=== PATIENT | male | born 1935 | race Caucasian/White ===

== ENCOUNTER 2016-06-01 12:29 | Inpatient (IN) | payer MEDICARE ==
[2016-06-01] VITALS (21 sets, daily range): BP systolic 126–199; BP diastolic 57–87; PULSE 53–83; RESP 16–23; TEMP 99.2–99.5; O2SAT 91–99
[~2016-06-01] VITALS: Ht 177.8 cm; Wt 81.2 kg
[2016-06-01 12:53] LABS: I-STAT POTASSIUM 4.4 MMOL/L (3.5-4.9); I-STAT SODIUM 141 MMOL/L (138-146)
[2016-06-01 12:55] LABS: AUTOMATED NEUTROPHIL # 4.9 TH/MM3 (1.8-7.7); BASOPHIL % 0.4 % (0.0-2.0); EOSINOPHIL # 0.1 TH/MM3 (0-0.4); HEMATOCRIT 41.3 % (39.0-51.0); HEMO FLAGS DIFF FINAL; LYMPH % 16.4 % (9.0-44.0); LYMPHOCYTE # 1.1 TH/MM3 (1.0-4.8); MEAN CELL VOLUME 93.6 FL (80.0-100.0); MEAN CORPUSCULAR HEMOGLOBIN 31.5 PG (27.0-34.0); MEAN CORPUSCULAR HGB CONC 33.7 % (32.0-36.0); MONO % 5.8 % (0.0-8.0); NEUT % 75.4 % (16.0-70.0); PLATELET COUNT 151 TH/MM3 (150-450); RED BLOOD COUNT 4.41 MIL/MM3 (4.50-5.90); RED CELL DISTRIBUTION WIDTH 13.7 % (11.6-17.2); WHITE BLOOD COUNT 6.5 TH/MM3 (4.0-11.0)
--- NOTE | 2016-06-01 12:59 | RADRPT ---
EXAM DATE/TIME: 06/01/2016 12:37 [facility] COMPARISON: No previous studies available for comparison. INDICATIONS : Stroke alert. Right side weakness status post fall. RADIATION DOSE: 35.07 CTDIvol (mGy) This report was called by Francisco J Navarro MD to done at 1242 MEDICAL HISTORY : Non-responsive. SURGICAL HISTORY : Non-responsive. ENCOUNTER: Initial ACUITY: 1 day PAIN SCALE: Non-responsive LOCATION: cranial TECHNIQUE: Multiple contiguous axial images were obtained of the head. Using automated exposure control and adj ustment of the mA and/or kV according to patient size, radiation dose was kept as low as reasonably a chievable to obtain optimal diagnostic quality images. FINDINGS: There is a large hematoma in the left basal ganglia most characteristic of a hypertensive hemorrhage measuring 6.2 x 2.2 CM with rupture into the ventricular system. No cortical infarction is seen. Ther e is a mass effect and midline shift from [id number] of approximately 5 mm but no signs of herniat ion. Posterior fossa structures are unremarkable. CONCLUSION: Large left basal ganglia hematoma as described above with intraventricular rupture Francisco J Navarro MD on June 01, 2016 at 12:41 Board Certified Radiologist. This report was verified electronically.
[2016-06-01] MEDS ORDERED: SODIUM CHLOR 0.9% 1000 ML INJ 1,000 ML IV SCH (13:01)
[2016-06-01] MEDS ORDERED: FINA5TAB2 PO (13:03)
[2016-06-01] MEDS ORDERED: QUIN20TA4 PO (13:03)
[2016-06-01 13:04] LABS: APTT (PATIENT) 27.2 SEC (24.3-30.1); PROTHROMBIN TIME - PATIENT 10.9 SEC (9.8-11.6)
[2016-06-01] MEDS: niCARdipine INJ 25 MG in SODIUM CHLOR 0.9% 250 ML INJ 250 ML IV SCH ×5 (13:13→23:38)
[2016-06-01 13:14] LABS: CREATINE KINASE 145 U/L (39-308)
[2016-06-01] MEDS ORDERED: ACETAMINOPHEN 325 MG TAB PO PRN ×2 (13:15→14:15)
[2016-06-01] MEDS ORDERED: LABETALOL HCL 100 MG/20 ML VIAL IV PRN (13:15)
[2016-06-01] MEDS ORDERED: SODIUM CHLORIDE 0.9% FLUSH 5 ML FLUSH IVF PRN (13:15)
[2016-06-01] MEDS ORDERED: DOCUSATE SODIUM 100 MG CAP PO PRN (13:15)
[2016-06-01] MEDS ORDERED: niCARdipine INJ 25 MG in SODIUM CHLOR 0.9% 250 ML INJ 250 ML IV SCH (13:15)
--- NOTE | 2016-06-01 13:15 | PD ---
HPI Chief Complaint: Stroke Alert Time Seen by Provider: 12:32 Travel History International Travel<30 days: No Contact w/Intl Traveler<30days: No Traveled to known affect area: No History of Present Illness HPI 80-year-old male brought in by ambulance from home as a stroke alert. According to EMS the patient has history of hypertension, no other medical history. At around 11:50 AM the patient went to the restroom. The patient's heard a loud sound and was able to open the door only to find the patient lying on the ground. EMS arrived and noted that the patient had right-sided hemiparesis and is unable to speak. He is able to follow commands and move his left arm and leg. Upon arrival to the emergency department the patient is awake , however is aphasic and is unable to provide any further history. He is on a long board with cervical collar. BGL obtained by EMS was 136. Twelve-lead shows sinus rhythm. PFSH Past Medical History Hypertension: Yes Past Surgical History Surgical History: Unable to Obtain Social History Alcohol Use: No Tobacco Use: No Substance Use: No Allergies-Medications (Allergen,Severity, Reaction): Coded Allergies: No Known Allergies (Unverified , 06/01/16) Reported Meds & Prescriptions Reported Meds & Active Scripts Active Reported Quinapril (Quinapril HCl) 20 Mg Tab 20 Mg PO DAILY Finasteride 5 Mg Tab 5 Mg PO DAILY Do not crush. Review of Systems ROS Limitations: Clinical Condition Physical Exam Narrative GENERAL: Awake, alert, follows commands. SKIN: Warm and dry. Superficial abrasion to right shoulder and to right forehead. HEAD: Skin exam as above. Normocephalic. EYES: Pupils are pinpoint. No scleral icterus. No injection or drainage. ENT: No nasal bleeding or discharge. Mucous membranes pink and moist. NECK: Trachea midline. No JVD. Cervical collar in place. CARDIOVASCULAR: Regular rate and rhythm. RESPIRATORY: No accessory muscle use. Clear to auscultation. Breath sounds equal bilaterally. GASTROINTESTINAL: Abdomen soft, non-tender, nondistended. MUSCULOSKELETAL: No obvious deformities. No clubbing. No cyanosis. No edema. NEUROLOGICAL: Awake and alert. Follows commands. Dense right hemiparesis. Normal muscle strength in left upper and left lower extremity. PSYCHIATRIC: Unable to assess. Data Data Last Documented VS Vital Signs Date Time Temp Pulse Resp B/P Pulse Ox O2 Delivery O2 Flow Rate FiO2 06/01/16 13:13 58 18 199/86 99 Nasal Cannula 2 Orders Diet Npo (06/01/16 Lunch) Activity Bed Rest (06/01/16 ) Electrocardiogram (06/01/16 ) I-Stat Creatinine (06/01/16 12:33) I-Stat Profile (06/01/16 12:33) Prothrombin Time / Inr (Pt) (06/01/16 12:33) Act Partial Throm Time (Ptt) (06/01/16 12:33) Complete Blood Count With Diff (06/01/16 12:33) Fibrinogen (06/01/16 12:33) Creatine Kinase (Cpk) (06/01/16 12:33) Troponin I (06/01/16 12:33) Ua Includes Microscopic (06/01/16 12:33) Drug Screen, Random Urine (06/01/16 12:33) Type And Screen (06/01/16 12:33) Ct Brain W/O Iv Contrast(Rout) (06/01/16 ) Consult Neurology (06/01/16 ) Blood Glucose (06/01/16 12:33) Ecg Monitoring (06/01/16 12:33) Neuro Checks Q2HX12,Q4H (06/01/16 12:33) Nursing Bedside Swallow Assess .ONCE (06/01/16 12:33) Iv Access Insert/Monitor (06/01/16 12:33) NPO (06/01/16 12:33) Oximetry (06/01/16 12:33) Oxygen Administration (06/01/16 12:33) Resp Oxygen Dougie C Titrat 1-4 L (06/01/16 12:33) Cath For Specimen (06/01/16 12:33) Ct Cerv Spine W/O Contrast (06/01/16 ) (Hub Use Only)Inp Phy Cons/Ref (06/01/16 ) Nicardipine Inj (Cardene Inj) (06/01/16 13:00) Admit To Inpatient (06/01/16 ) Vital Signs (Adult) Q1H (06/01/16 13:01) Neuro Checks Q1H (06/01/16 13:01) Ot Request For Service (06/01/16 13:01) Consult Pt Eval & Treat (06/01/16 13:01) Swallow Eval W/ St (06/01/16 13:01) Case Management Consult (06/01/16 ) Activity Bed Rest (06/01/16 13:01) ^ Elevate Head Of Bed (06/01/16 13:01) Nursing Bedside Swallow Assess .ONCE (06/01/16 13:01) Insert Ng Tube (06/01/16 13:01) Complete Blood Count With Diff (06/02/16 06:00) Prothrombin Time / Inr (Pt) (06/02/16 06:00) Fibrinogen (06/02/16 06:00) Ct Brain W/O Iv Contrast(Rout) (06/02/16 ) Urinary Catheter Management ENOCH.Q8H (06/01/16 13:01) Resp Oxygen Dougie C Titrat 1-4 L (06/01/16 ) Consult Habilitation Worker (06/01/16 ) Sodium Chlor 0.9% 1000 Ml Inj (Ns 1000 M (06/01/16 13:01) Sodium Chloride 0.9% Flush (Ns Flush) (06/01/16 13:15) Sodium Chloride 0.9% Flush (Ns Flush) (06/01/16 21:00) Labetalol Inj (Trandate Inj) (06/01/16 13:15) Nicardipine Inj (Cardene Inj) (06/01/16 13:15) Pantoprazole Inj (Protonix Inj) (06/02/16 09:00) Acetaminophen (Tylenol) (06/01/16 13:15) Docusate Sodium (Colace) (06/01/16 13:15) Scd Bilateral/Knee High ENOCH.QSHIFT (06/01/16 13:01) Acetone Button Paster / Telemetry ENOCH.Q8H (06/01/16 13:01) Consult Stoke Navigator (06/01/16 ) Inpatient Certification (06/01/16 ) Admit Order (Ed Use Only) (06/01/16 13:15) Labs Laboratory Tests Test 06/01/16 12:35 White Blood Count 6.5 TH/MM3 Red Blood Count 4.41 MIL/MM3 Hemoglobin 13.9 GM/DL Bedside Hemoglobin 13.9 G/DL Hematocrit 41.3 % Bedside Hematocrit 41.0 % Mean Corpuscular Volume 93.6 FL Mean Corpuscular Hemoglobin 31.5 PG Mean Corpuscular Hemoglobin 33.7 % Concent Red Cell Distribution Width 13.7 % Platelet Count 151 TH/MM3 Mean Platelet Volume 8.4 FL Neutrophils (%) (Auto) 75.4 % Lymphocytes (%) (Auto) 16.4 % Monocytes (%) (Auto) 5.8 % Eosinophils (%) (Auto) 2.0 % Basophils (%) (Auto) 0.4 % Neutrophils # (Auto) 4.9 TH/MM3 Lymphocytes # (Auto) 1.1 TH/MM3 Monocytes # (Auto) 0.4 TH/MM3 Eosinophils # (Auto) 0.1 TH/MM3 Basophils # (Auto) 0.0 TH/MM3 CBC Comment DIFF FINAL Differential Comment Prothrombin Time 10.9 SEC Prothromb Time International 1.0 RATIO Ratio Activated Partial 27.2 SEC Thromboplast Time Fibrinogen 259 mg/dL Bedside Sodium 141 MMOL/L Bedside Potassium 4.4 MMOL/L Bedside Chloride 101 MMOL/L Bedside Blood Urea Nitrogen 15 MG/DL Bedside Creatinine 1.3 MG/DL Bedside Glucose 145 MG/DL Total Creatine Kinase 145 U/L Troponin I LESS THAN 0.02 NG/ML Blood Type A POSITIVE Antibody Screen NEGATIVE Blood Bank Comment MDM Medical Screen Exam Complete: Yes Emergency Medical Condition: Yes Differential Diagnosis Acute ischemic stroke, ICH Narrative Course Stroke alert called prior to patient arrival. 12:40 PM: Case discussed with neurologist oracle ascp consultant Dr. Juarez. If there is no intracranial hemorrhage, the patient is a good candidate for TPA. 12:50 PM: I reviewed the patient's CT head and shows a large left and troponin, bleed with intraventricular extension with left to right shift. 1:00 PM: Case discussed with neurosurgeon Dr. Alonso who will evaluate the patient. Patient will be started on a Cardene drip to keep systolic blood pressure around 120. 1:03 PM: The patient and the patient's who is at the bedside were made aware of CT head findings. The patient's is named Brittney Pena. Her cell phone number is . She gave me his medications which include an antihypertensive and finasteride. He is not on any antiplatelets or anticoagulants. 1:10 PM: Case discussed with regional loss prevention manager Dr. Marcial who will admit the patient to his service. The patient is awake and following commands. He is unable to move his right arm or right leg. His airway is patent and protected. CT cervical spine shows degenerative changes without fracture. Cervical collar removed by me. Critical Care Narrative Aggregate critical care time was 35 minutes. Time to perform other separately billable procedures was not included in the critical care time. My time did not include minutes spent treating any other patients simultaneously or on activities that did not directly contribute to the patient's treatment. The services I provided to this patient were to treat and/or prevent clinically significant deterioration that could result in: , permanent disability, worsening clinical condition. I provided critical care services requiring my management, as noted below: Chart data review, documentation time, medication orders and management, vital sign assessments/reviewing monitor data, ordering and reviewing lab tests, ordering and interpreting/reviewing x-rays and diagnostic studies, care of the patient and discussion of the patient with the admitting physicians. Stroke Alert NIHSS NIH Stroke Scale Result: 24 NIHSS Time Completed: 12:30 Diagnosis Diagnosis: Primary Impression: Intracranial hemorrhage Admitting Physician Requests: Admit Barry Romero MD Jun 01, 2016 13:15
--- NOTE | 2016-06-01 13:30 | RADRPT ---
EXAM DATE/TIME: 06/01/2016 12:37 [facility] COMPARISON: No previous studies available for comparison. INDICATIONS : Right side weakness status post fall. RADIATION DOSE: 25.37 CTDIvol (mGy) MEDICAL HISTORY : Non-responsive. SURGICAL HISTORY : Non-responsive. ENCOUNTER: Initial ACUITY: 1 day PAIN SCALE: Non-responsive LOCATION: neck TECHNIQUE: Volumetric scanning of the cervical spine was performed. Multiplanar reconstructions in the sagittal, coronal and oblique axial planes were performed. Using automated exposure control and adjustment o f the mA and/or kV according to patient size, radiation dose was kept as low as reasonably achievable to obtain optimal diagnostic quality images. FINDINGS: There are degenerative changes in the cervical spine. Alignment is anatomic in the sagittal and emy nal projections. C1 and C2 are intact. C2-C3: There is very mild left-sided neural foramina encroachment. C3-C4: Mild uncinate ridging is present with mild bilateral neural foramina encroachment. C4-C5: Moderate uncinate ridging is present with moderate bilateral neural foramina encroachment. C5-C6: Moderate uncinate ridging is present with right-sided neural foramina encroachment and mild spinal st enosis. C6-C7: Mild uncinate ridging is present. Minimal neural foramina encroachment is noted. C7-T1: The bony spinal canal is normal in size. No evidence of disc bulge or herniation. The neural forami na are bilaterally patent. CONCLUSION: Degenerative changes as described above without fracture. Charlie Ramos MD FACR on June 01, 2016 at 13:15 Board Certified Radiologist. This report was verified electronically.
[2016-06-01] MEDS ORDERED: MANNITOL 12.5 GM/50 ML VIAL IV ONE (14:00)
[2016-06-01 14:03] LABS: BLOOD, URINE NEG (NEG); GLUCOSE,URINE NEG (NEG); KETONE, URINE NEG (NEG); NITRITE,URINE NEG (NEG); URINE COLOR LIGHT-YELLOW (YELLW/STRAW)
[2016-06-01 14:05] LABS: AMPHETAMINE, URINE NEG (NEG); BARBITURATES, URINE NEG (NEG); COCAINE, URINE NEG (NEG)
[2016-06-01] MEDS ORDERED: CHLORHEXIDINE GLUCONATE 2 % 1 PACK (2 CLOTHS) TOP PRN (14:15)
[2016-06-01] MEDS ORDERED: LORazepam 2 MG/ML VIAL IV PRN (14:15)
[2016-06-01] MEDS ORDERED: METOCLOPRAMIDE HCL 10 MG/2 ML VIAL IV PRN (14:15)
[2016-06-01] MEDS ORDERED: hydrALAZINE HCL 20 MG/ML VIAL IV PUSH PRN (14:15)
[2016-06-01] MEDS ORDERED: ONDANSETRON HCL 4 MG/2 ML VIAL IV PRN (14:15)
[2016-06-01] MEDS ORDERED: SODIUM CHLORIDE 0.9% FLUSH 5 ML FLUSH IV FLUSH PRN (14:15)
[2016-06-01] MEDS ORDERED: MISCELLANEOUS NURSING INFORMATION XX SCH (14:15)
[2016-06-01] MEDS ORDERED: MORPHINE SULFATE 4 MG/ML INJ IV PRN (14:15)
--- NOTE | 2016-06-01 15:55 | PD.CONS ---
[facility] Service Neurosurgery Consult Requested By Dr Romero Reason for Consult left basal ganglia bleed Primary Care Physician Primary Care Physician tiffanie in [facility] History of Present Illness 80 yr old right handed gentleman fell in the bathroom this am coming out of the shower. His heard him and he was able to unlock the door for her to get in the bathroom. He was aphasic but awake and able to use the left hand. He could not use his right hand or stand. He was brought in by EMS to [place]. A head CT showed a large left basal ganglia bleed with intraventricular extension. He is now lethargic with his eyes closed, purposefully using the left hand and non verbal [id number] = 10 Review of Systems ROS Limitations: Altered Mental Status Constitutional: DENIES: Diaphoretic episodes, Fatigue, Fever, Weight gain, Weight loss, Chills, Dizziness, Change in appetite, Night Sweats Endocrine: DENIES: Heat/cold intolerance, Polydipsia, Polyuria, Polyphagia Eyes: DENIES: Blurred vision, Diplopia, Eye inflammation, Eye pain, Vision loss , Photosensitivity, Double Vision Ears, nose, mouth, throat: DENIES: Tinnitus, Hearing loss, Vertigo, Nasal discharge, Oral lesions, Throat pain, Hoarseness, Ear Pain, Running Nose, Epistaxis, Sinus Pain, Toothache, Odynophagia Respiratory: DENIES: Apneas, Cough, Snoring, Wheezing, Hemoptysis, Sputum production, Shortness of breath Cardiovascular: DENIES: Chest pain, Palpitations, Syncope, Dyspnea on Exertion , PND, Lower Extremity Edema, Orthopnea, Claudication Gastrointestinal: DENIES: Abdominal pain, Black stools, Bloody stools, Constipation, Diarrhea, Nausea, Vomiting, Difficulty Swallowing, Anorexia Genitourinary: DENIES: Sexual dysfunction, Urinary frequency, Urinary incontinence, Urgency, Hematuria, Dysuria, Nocturia, Penile Discharge, Testicular Pain, Testicular Swelling Musculoskeletal: COMPLAINS OF: Joint Swelling (left knee pain) Integumentary: DENIES: Abnormal pigmentation, Nail changes, Pruritus, Rash Hematologic/lymphatic: DENIES: Bruising, Lymphadenopathy Immunologic/allergic: DENIES: Eczema, Urticaria Neurologic: COMPLAINS OF: Localized weakness, DENIES: Abnormal gait, Headache , Paresthesias, Seizures, Speech Problems, Tremor, Poor Balance Psychiatric: DENIES: Anxiety, Confusion, Mood changes, Depression, Hallucinations, Agitation, Suicidal Ideation, Homicidal Ideation, Delusions Past Family Social History Allergies: Coded Allergies: UNOBTAINABLE (Unverified , 06/01/16) Past Medical History HTN BPH Past Surgical History None Reported Medications Reported Meds & Active Scripts Active Reported Quinapril (Quinapril HCl) 20 Mg Tab 20 Mg PO DAILY Finasteride 5 Mg Tab 5 Mg PO DAILY Do not crush. Family History Both parents of old age but he has a sister and a brother with hx of CVA Social History Former chemical engineering technologist and contractor, quit tob many yrs ago Physical Exam Vital Signs Vital Signs Date Time Temp Pulse Resp B/P Pulse Ox O2 Delivery O2 Flow Rate FiO2 06/01/16 15:15 81 156/67 97 Nasal Cannula 2 06/01/16 15:00 81 16 150/68 98 Nasal Cannula 2 06/01/16 14:30 72 18 155/75 99 Nasal Cannula 2 06/01/16 14:00 70 16 151/70 95 Nasal Cannula 2 06/01/16 13:51 64 16 164/74 99 Nasal Cannula 2 06/01/16 13:13 58 18 199/86 99 Nasal Cannula 2 06/01/16 13:05 55 199/86 99 Nasal Cannula 2 06/01/16 13:02 99 Nasal Cannula 2 06/01/16 12:59 53 163/78 91 Nasal Cannula 2 06/01/16 12:55 61 163/78 06/01/16 12:36 97 Nasal Cannula 2.00 06/01/16 12:35 56 184/87 99 Nasal Cannula 2 Physical Exam Lying on the ED cart, arouses if stimulated, right forehead ecchymosis, superficial Pupils small 2mm round, reactive, snoring when not stimulated, non verbal when stimulated, corneals and gag are present Purposeful with the left hand 4/5, withdraws both lower extremities to stimulation, No Dalton, no Babinski Abd soft nl BS Skin dry, no bruising, no rashes, no edema Laboratory Laboratory Tests Test 06/01/16 06/01/16 12:35 13:30 White Blood Count 6.5 Red Blood Count 4.41 Hemoglobin 13.9 Bedside Hemoglobin 13.9 Hematocrit 41.3 Bedside Hematocrit 41.0 Mean Corpuscular Volume 93.6 Mean Corpuscular Hemoglobin 31.5 Mean Corpuscular Hemoglobin 33.7 Concent Red Cell Distribution Width 13.7 Platelet Count 151 Mean Platelet Volume 8.4 Neutrophils (%) (Auto) 75.4 Lymphocytes (%) (Auto) 16.4 Monocytes (%) (Auto) 5.8 Eosinophils (%) (Auto) 2.0 Basophils (%) (Auto) 0.4 Neutrophils # (Auto) 4.9 Lymphocytes # (Auto) 1.1 Monocytes # (Auto) 0.4 Eosinophils # (Auto) 0.1 Basophils # (Auto) 0.0 CBC Comment DIFF FINAL Differential Comment Prothrombin Time 10.9 Prothromb Time International 1.0 Ratio Activated Partial 27.2 Thromboplast Time Fibrinogen 259 Bedside Sodium 141 Bedside Potassium 4.4 Bedside Chloride 101 Bedside Blood Urea Nitrogen 15 Bedside Creatinine 1.3 Bedside Glucose 145 Total Creatine Kinase 145 Troponin I LESS THAN 0.02 Blood Type A POSITIVE Antibody Screen NEGATIVE Blood Bank Comment Urine Color LIGHT-YELLOW Urine Turbidity CLEAR Urine pH 7.0 Urine Specific [place] 1.010 Urine Protein 30 Urine Glucose (UA) NEG Urine Ketones NEG Urine Occult Blood NEG Urine Nitrite NEG Urine Bilirubin NEG Urine Urobilinogen LESS THAN 2.0 Urine Leukocyte Esterase NEG Urine RBC 4 Urine WBC LESS THAN 1 Microscopic Urinalysis Comment Urine Opiates Screen NEG Urine Barbiturates Screen NEG Urine Amphetamines Screen NEG Urine Benzodiazepines Screen NEG Urine Cocaine Screen NEG Urine Cannabinoids Screen NEG Result Diagram: 06/01/16 1235 Imaging Last Impressions Head CT 06/01/16 0000 Signed Impressions: Service Date/Time: Wednesday, June 01, 2016 12:37 - CONCLUSION: Large left basal ganglia hematoma as described above with intraventricular rupture Francisco J Navarro MD Assessment and Plan Diagnosis: (1) Intracranial hemorrhage Plan: Large basal ganglia bleed with left intraventricular extension. His indicated that he has a living will and would not want to be in a dependent state. She is waiting for her daughter ad son to come from [place]. Supportive care until then is discussed with possible temporary intubation for airway protection and possible EVD if necessary. ICD Code: I62.9 (2) HTN (hypertension) ICD Code: I10 Problem Qualifiers (1) HTN (hypertension): Qualified Code: I10 - Essential hypertension Maged Alonso Jun 01, 2016 15:55
[2016-06-01] MEDS ORDERED: RESP: ALBUTEROL 2.5 MG/IPRATROPIUM 0.5 MG NEB (PRN) INH (16:00)
[2016-06-01] MEDS: SODIUM CHLOR 0.9% 1000 ML INJ 1,000 ML IV SCH ×2 (16:28→22:13)
--- NOTE | 2016-06-01 17:22 | HHI.HP ---
HPI Service Critical Care Medicine Primary Care Physician No Primary Care Physician Admission Diagnosis intracranial hemorrhage Diagnosis: Travel History International Travel<30 Days: No Contact w/Intl Traveler <30 Da: No Traveled to Known Affected Are: No History of Present Illness 80-year-old male brought in by ambulance from home as a stroke alert. According to chart the patient has history of hypertension, no other medical problems. At around 11:50 AM the patient went to the restroom. The patient's heard a loud sound and was able to open the door only to find the patient lying on the ground. EMS arrived and noted that the patient had right-sided hemiparesis and is unable to speak. He is able to follow commands and move his left arm and leg. CT of the brain revealed a large basal ganglia bleed Review of Systems ROS Unable to obtain patient is nonverbal Past Family Social History Allergies: Coded Allergies: UNOBTAINABLE (Unverified , 06/01/16) Past Medical History Hypertension Past Surgical History Unable to obtain Reported Medications Reported Meds & Active Scripts Active Reported Quinapril (Quinapril HCl) 20 Mg Tab 20 Mg PO DAILY Finasteride 5 Mg Tab 5 Mg PO DAILY Do not crush. Active Ordered Medications Current Medications Medications (Trade) Dose Ordered Sig/Evan Route PRN Reason Start Time Stop Time Status Last Admin Dose Admin Nicardipine HCl/ Sodium Chloride (Cardene Inj/NS 250 ml Inj) 260 ml @ 0 mls/hr TITRATE IV 06/01/16 13:00 06/01/16 16:28 Labetalol HCl (Trandate Inj) 10 mg Q4H PRN IV SYS BP GREATER THAN 160 MMHG 06/01/16 13:15 Pantoprazole Sodium (Protonix Inj) 40 mg DAILY IVP 06/02/16 09:00 Acetaminophen (Tylenol) 650 mg Q4H PRN PO PAIN SCALE 1 TO 10 06/01/16 13:15 Docusate Sodium 100 mg 100 mg BID PRN PO CONSTIPATION 06/01/16 13:15 Sodium Chloride (NS 1000 ml Inj) 1,000 ml @ 84 mls/hr [id number] IV 06/01/16 15:00 06/01/16 16:28 IV Flush (NS Flush) 2 ml UNSCH PRN IV FLUSH FLUSH AFTER USING IV ACCESS 06/01/16 14:15 IV Flush (NS Flush) 2 ml BID IV FLUSH 06/01/16 21:00 Acetaminophen (Tylenol) 650 mg Q6H PRN PO PAIN 1-10 AND/OR FEVER >101F 06/01/16 14:15 Morphine Sulfate (Morphine Inj) 2 mg Q2H PRN IV PAIN SCALE 6 TO 10 06/01/16 14:15 Famotidine (Pepcid Inj) 20 mg Q12HR IV PUSH 06/01/16 21:00 Lorazepam (Ativan Inj) 1 mg Q1H PRN IV Agitation/Sedation 06/01/16 14:15 Ondansetron HCl (Zofran Inj) 4 mg Q6H PRN IV NAUSEA OR VOMITING 06/01/16 14:15 Metoclopramide HCl (Reglan Inj) 10 mg Q6H PRN IV NAUSEA OR VOMITING 06/01/16 14:15 Docusate Sodium (Colace Liq) 100 mg Q12H G-TUBE 06/01/16 21:00 Miscellaneous Information 1 [id number] XX 06/01/16 14:15 Chlorhexidine Gluconate (Chlorhexidine 2% Cloth) 3 pack Taper DAILY@04 TOP 06/02/16 04:00 05/29/17 03:59 Chlorhexidine Gluconate 3 pack 3 pack UNSCH PRN TOP HYGIENIC CARE 06/01/16 14:15 Nicardipine HCl/ Sodium Chloride (Cardene Inj/NS 250 ml Inj) 260 ml @ 0 mls/hr TITRATE IV 06/01/16 14:15 Hydralazine HCl (Apresoline Inj) 10 mg Q30M PRN IV PUSH SBP>130 06/01/16 14:15 Family History Noncontributory Social History Quit smoking many years ago no alcohol or illicit drug abuse Physical Exam Vital Signs Vital Signs Date Time Temp Pulse Resp B/P Pulse Ox O2 Delivery O2 Flow Rate FiO2 06/01/16 16:45 82 16 145/67 96 Nasal Cannula 2 06/01/16 16:31 78 20 153/61 94 Room Air 06/01/16 16:18 78 142/66 97 Nasal Cannula 2 06/01/16 15:15 81 156/67 97 Nasal Cannula 2 06/01/16 15:00 81 16 150/68 98 Nasal Cannula 2 06/01/16 14:30 72 18 155/75 99 Nasal Cannula 2 06/01/16 14:00 70 16 151/70 95 Nasal Cannula 2 06/01/16 13:51 64 16 164/74 99 Nasal Cannula 2 06/01/16 13:13 58 18 199/86 99 Nasal Cannula 2 06/01/16 13:05 55 199/86 99 Nasal Cannula 2 06/01/16 13:02 99 Nasal Cannula 2 06/01/16 12:59 53 163/78 91 Nasal Cannula 2 06/01/16 12:55 61 163/78 06/01/16 12:36 97 Nasal Cannula 2.00 06/01/16 12:35 56 184/87 99 Nasal Cannula 2 Physical Exam GENERAL: Well-nourished, well-developed patient. SKIN: Warm and dry. HEAD: Normocephalic. EYES: No scleral icterus. No injection or drainage. NECK: Supple, trachea midline. No JVD or lymphadenopathy. CARDIOVASCULAR: Regular rate and rhythm without murmurs, gallops, or rubs. RESPIRATORY: Breath sounds equal bilaterally. No accessory muscle use. GASTROINTESTINAL: Abdomen soft, non-tender, nondistended. MUSCULOSKELETAL: No cyanosis, or edema. BACK: Nontender without obvious deformity. No CVA tenderness. EXTREMITIES: Right-sided hemiplegia Laboratory Laboratory Tests Test 06/01/16 06/01/16 12:35 13:30 White Blood Count 6.5 Red Blood Count 4.41 Hemoglobin 13.9 Bedside Hemoglobin 13.9 Hematocrit 41.3 Bedside Hematocrit 41.0 Mean Corpuscular Volume 93.6 Mean Corpuscular Hemoglobin 31.5 Mean Corpuscular Hemoglobin 33.7 Concent Red Cell Distribution Width 13.7 Platelet Count 151 Mean Platelet Volume 8.4 Neutrophils (%) (Auto) 75.4 Lymphocytes (%) (Auto) 16.4 Monocytes (%) (Auto) 5.8 Eosinophils (%) (Auto) 2.0 Basophils (%) (Auto) 0.4 Neutrophils # (Auto) 4.9 Lymphocytes # (Auto) 1.1 Monocytes # (Auto) 0.4 Eosinophils # (Auto) 0.1 Basophils # (Auto) 0.0 CBC Comment DIFF FINAL Differential Comment Prothrombin Time 10.9 Prothromb Time International 1.0 Ratio Activated Partial 27.2 Thromboplast Time Fibrinogen 259 Bedside Sodium 141 Bedside Potassium 4.4 Bedside Chloride 101 Bedside Blood Urea Nitrogen 15 Bedside Creatinine 1.3 Bedside Glucose 145 Total Creatine Kinase 145 Troponin I LESS THAN 0.02 Blood Type A POSITIVE Antibody Screen NEGATIVE Blood Bank Comment Urine Color LIGHT-YELLOW Urine Turbidity CLEAR Urine pH 7.0 Urine Specific [place] 1.010 Urine Protein 30 Urine Glucose (UA) NEG Urine Ketones NEG Urine Occult Blood NEG Urine Nitrite NEG Urine Bilirubin NEG Urine Urobilinogen LESS THAN 2.0 Urine Leukocyte Esterase NEG Urine RBC 4 Urine WBC LESS THAN 1 Microscopic Urinalysis Comment Urine Opiates Screen NEG Urine Barbiturates Screen NEG Urine Amphetamines Screen NEG Urine Benzodiazepines Screen NEG Urine Cocaine Screen NEG Urine Cannabinoids Screen NEG Result Diagram: 06/01/16 1235 Imaging Last [address] 06/01/16 0000 Signed Impressions: Service Date/Time: Wednesday, June 01, 2016 12:37 - CONCLUSION: Large left basal ganglia hematoma as described above with intraventricular rupture Francisco J Navarro MD Assessment and Plan Problem List: (1) Intracranial hemorrhage ICD Code: I62.9 Status: Acute (2) HTN (hypertension) ICD Code: I10 Status: Acute Assessment and Plan Intracranial bleed - Due to uncontrolled hypertension - No anticoagulation meds - Coags within normal limits - Not candidate for surgical intervention - May require intubation if neurologically deep declines - Supportive care for now - Monitor neuro status in ICU Malignant hypertension - Cardene drip - SBP goal less than 1:30 - Hydralazine when necessary DVT GI prophylaxis - Brandon's and SCDs Pepcid Critical Care: The total critical care time was 35 minutes. Time to perform other separately billable procedures was not included in the critical care time. Problem Qualifiers (1) HTN (hypertension): Qualified Code: I10 - Essential hypertension Giorgio Marcial MD Jun 01, 2016 17:22
[2016-06-01] MEDS ORDERED: SODIUM CHLOR 0.9% 250 ML INJ 250 ML ONE ×2 (20:25→23:33)
[2016-06-01] MEDS: FAMOTIDINE 20 MG/2 ML VIAL IV PUSH SCH (20:38)
[2016-06-01] MEDS: SODIUM CHLORIDE 0.9% FLUSH 5 ML FLUSH IV FLUSH SCH (20:40)
[2016-06-01] MEDS ORDERED: SODIUM CHLORIDE 0.9% FLUSH 5 ML FLUSH IVF SCH (21:00)
[2016-06-01] MEDS: DOCUSATE SODIUM 100 MG/10 ML UDC G-TUBE SCH (21:00)
[2016-06-02] VITALS (21 sets, daily range): BP systolic 126–144; BP diastolic 58–67; PULSE 62–84; RESP 18–26; TEMP 98.1–99.6; O2SAT 96–99
[2016-06-02] MEDS ORDERED: SODIUM CHLOR 0.9% 250 ML INJ 250 ML ONE ×2 (01:55→03:55)
[2016-06-02] MEDS: niCARdipine INJ 25 MG in SODIUM CHLOR 0.9% 250 ML INJ 250 ML IV SCH ×3 (02:20→21:01)
[2016-06-02] MEDS: CHLORHEXIDINE GLUCONATE 2 % 1 PACK (2 CLOTHS) TOP SCH (03:33)
[2016-06-02] MEDS ORDERED: EPINEPHrine HCL (1:10,000) 1 MG/10 ML SYRINGE ONE (04:10)
[2016-06-02] MEDS ORDERED: LIDOCAINE HCL 2% 100 MG/5 ML SYRINGE ONE (04:10)
[2016-06-02] MEDS ORDERED: ATROPINE SULFATE 1 MG/10 ML SYRINGE ONE (04:10)
--- NOTE | 2016-06-02 04:58 | RADRPT ---
EXAM DATE/TIME: 06/02/2016 04:40 [facility] COMPARISON: CT BRAIN W/O CONTRAST, June 01, 2016, 12:37. INDICATIONS : Follow up hemorrhage. RADIATION DOSE: 46.22 CTDIvol (mGy) MEDICAL HISTORY : Non-responsive. SURGICAL HISTORY : Non-responsive. ENCOUNTER: Subsequent ACUITY: 1 day PAIN SCALE: Non-responsive LOCATION: cranial TECHNIQUE: Multiple contiguous axial images were obtained of the head. Using automated exposure control and adj ustment of the mA and/or kV according to patient size, radiation dose was kept as low as reasonably a chievable to obtain optimal diagnostic quality images. FINDINGS: The left parenchymal hemorrhage at the left parietal, frontal and temporal lobes is slightly larger i n the interim, currently measures about 4.3 x 7.2 cm in greatest transaxial dimension. There is incre ased blood in both lateral ventricles. No ventriculomegaly. Subarachnoid blood now evident in the sul ci of both frontal and parietal lobes. There also appears to be small subarachnoid blood in between t he cerebral peduncles. There is about 3 mm of rightward midline shift which is not significantly givens ged. No mass lesion seen. No evidence of an acute ischemic event. CONCLUSION: 1. Increased size of the left parenchymal hemorrhage. 2. Increased amount of blood in both lateral ventricles. No ventriculomegaly. 3. Bilateral subarachnoid blood now evident. 4. 3 mm of rightward midline shift which is about the same. Bennett Terrell MD on June 02, 2016 at 4:53 Board Certified Radiologist. This report was verified electronically.
[2016-06-02 05:30] LABS: AUTOMATED NEUTROPHIL # 6.4 TH/MM3 (1.8-7.7); BASOPHIL % 0.1 % (0.0-2.0); EOSINOPHIL % 0.1 % (0.0-4.0); HEMATOCRIT 38.8 % (39.0-51.0); HEMO FLAGS DIFF FINAL; LYMPH % 9.4 % (9.0-44.0); LYMPHOCYTE # 0.7 TH/MM3 (1.0-4.8); MEAN CELL VOLUME 92.8 FL (80.0-100.0); MEAN CORPUSCULAR HEMOGLOBIN 32.1 PG (27.0-34.0); MEAN CORPUSCULAR HGB CONC 34.5 % (32.0-36.0); MONO % 8.3 % (0.0-8.0); NEUT % 82.1 % (16.0-70.0); PLATELET COUNT 153 TH/MM3 (150-450); RED BLOOD COUNT 4.18 MIL/MM3 (4.50-5.90); RED CELL DISTRIBUTION WIDTH 13.6 % (11.6-17.2); WHITE BLOOD COUNT 7.8 TH/MM3 (4.0-11.0)
[2016-06-02 05:37] LABS: PROTHROMBIN TIME - PATIENT 11.2 SEC (9.8-11.6)
[2016-06-02 05:47] LABS: ALT (GPT) 16 U/L (12-78); ANION GAP 8 MEQ/L (5-15); AST (GOT) 19 U/L (15-37); BICARBONATE 25.7 MEQ/L (21.0-32.0); BLOOD UREA NITROGEN 14 MG/DL (7-18); CHLORIDE 110 MEQ/L (98-107); GLOMERULAR FILTRATION RATE 52 ML/MIN (>89); POTASSIUM 3.8 MEQ/L (3.5-5.1); SODIUM (NA) 144 MEQ/L (136-145)
[2016-06-02 05:49] LABS: ALKALINE PHOSPHATASE 74 U/L (45-117); TOTAL BILIRUBIN ADULT 1.1 MG/DL (0.2-1.0)
[2016-06-02] MEDS ORDERED: 2% NS 1000 ML IV SCH ×2 (06:30)
--- NOTE | 2016-06-02 06:48 | HHI.CCPN ---
Subjective Remarks/Hospital Course 80-year-old male brought in by ambulance from home as a stroke alert. According to chart the patient has history of hypertension, no other medical problems. At around 11:50 AM the patient went to the restroom. The patient's heard a loud sound and was able to open the door only to find the patient lying on the ground. EMS arrived and noted that the patient had right-sided hemiparesis and is unable to speak. He is able to follow commands and move his left arm and leg. CT of the brain revealed a large basal ganglia bleed Objective Vital Signs Date Time Temp Pulse Resp B/P Pulse Ox O2 Delivery O2 Flow Rate FiO2 06/02/16 06:00 62 06/02/16 04:00 98.1 24 128/61 99 06/01/16 19:59 Nasal Cannula 2.00 Intake and Output 06/01/16 06/01/16 06/02/16 08:00 16:00 00:00 Intake Total 888 ml Output Total 1950 ml Balance -1062 ml Result Diagram: 06/02/16 0457 06/02/16 0451 Imaging Last [address] 06/01/16 0000 Signed Impressions: Service Date/Time: Wednesday, June 01, 2016 12:37 - CONCLUSION: Large left basal ganglia hematoma as described above with intraventricular rupture Francisco J Navarro MD Objective Remarks GENERAL: Well-nourished, well-developed patient. SKIN: Warm and dry. HEAD: Normocephalic. EYES: No scleral icterus. No injection or drainage. NECK: Supple, trachea midline. No JVD or lymphadenopathy. CARDIOVASCULAR: Regular rate and rhythm without murmurs, gallops, or rubs. RESPIRATORY: Breath sounds equal bilaterally. No accessory muscle use. GASTROINTESTINAL: Abdomen soft, non-tender, nondistended. MUSCULOSKELETAL: No cyanosis, or edema. BACK: Nontender without obvious deformity. No CVA tenderness. EXTREMITIES: Right-sided hemiplegia A/P Problem List: (1) Intracranial hemorrhage ICD Code: I62.9 Status: Acute (2) HTN (hypertension) ICD Code: I10 Status: Acute Assessment and Plan Intracranial bleed - Due to atherosclerosis and hypertension - No home anticoagulation medications - Coagulation profile within normal limits - Not candidate for neurosurgical intervention - May require intubation if neurologically deep declines - Supportive care for now - Monitor neuro status in ICU Malignant hypertension - Cardene drip - SBP goal less than 130 - Hydralazine when necessary DVT GI prophylaxis - Brandon's and SCDs Pepcid Level III Problem Qualifiers (1) HTN (hypertension): Qualified Code: I10 - Essential hypertension Giorgio Marcial MD Jun 02, 2016 06:48
[2016-06-02] MEDS: PANTOPRAZOLE SODIUM 40 MG VIAL IVP SCH (08:44)
[2016-06-02] MEDS: DOCUSATE SODIUM 100 MG/10 ML UDC G-TUBE SCH (08:44)
[2016-06-02] MEDS: FAMOTIDINE 20 MG/2 ML VIAL IV PUSH SCH ×2 (08:45→21:00)
[2016-06-02] MEDS: SODIUM CHLORIDE 0.9% FLUSH 5 ML FLUSH IV FLUSH SCH ×2 (08:45→21:00)
[2016-06-02] MEDS: SODIUM CHLORIDE 23.4% INJ 188 MEQ in SODIUM CHLOR 0.9% 1000 ML INJ 1,000 ML IV SCH (10:51)
--- NOTE | 2016-06-02 11:28 | HHI.NSPN ---
Subjective History Day 1 after large left basal ganglia hemorrhage, spontaneous, with aphasia and right hemiparesis. The family is gathering. He has advanced directive towards palliative care. Repeat CT this am showed left temporal extension of the bleed with minimal mass effect. Vitals . Vital Signs Date Time Temp Pulse Resp B/P Pulse Ox O2 Delivery O2 Flow Rate FiO2 06/02/16 11:00 64 20 126/60 98 06/02/16 10:00 64 06/02/16 10:00 70 20 127/59 96 06/02/16 09:00 20 128/61 99 06/02/16 08:35 97 Nasal Cannula 2.00 06/02/16 08:00 98.3 74 18 130/60 97 06/02/16 08:00 62 06/02/16 07:00 100 Nasal Cannula 2.00 06/02/16 06:00 62 06/02/16 04:00 78 06/02/16 04:00 98.1 78 24 128/61 99 06/02/16 02:00 79 06/02/16 00:00 80 06/02/16 00:00 99.2 80 24 130/58 96 06/01/16 22:00 72 06/01/16 20:00 70 06/01/16 20:00 99.2 70 23 132/58 98 06/01/16 19:59 98 Nasal Cannula 2.00 06/01/16 19:00 98 Nasal Cannula 2.00 06/01/16 18:45 99.5 69 20 134/61 98 06/01/16 18:01 70 126/57 97 Nasal Cannula 2 06/01/16 17:30 81 16 145/65 98 Nasal Cannula 2 06/01/16 17:15 83 148/63 98 Nasal Cannula 2 06/01/16 16:45 82 16 145/67 96 Nasal Cannula 2 06/01/16 16:31 78 20 153/61 94 Room Air 06/01/16 16:18 78 142/66 97 Nasal Cannula 2 06/01/16 15:15 81 156/67 97 Nasal Cannula 2 06/01/16 15:00 81 16 150/68 98 Nasal Cannula 2 06/01/16 14:30 72 18 155/75 99 Nasal Cannula 2 06/01/16 14:00 70 16 151/70 95 Nasal Cannula 2 06/01/16 13:51 64 16 164/74 99 Nasal Cannula 2 06/01/16 13:13 58 18 199/86 99 Nasal Cannula 2 06/01/16 13:05 55 199/86 99 Nasal Cannula 2 06/01/16 13:02 99 Nasal Cannula 2 06/01/16 12:59 53 163/78 91 Nasal Cannula 2 06/01/16 12:55 61 163/78 06/01/16 12:36 97 Nasal Cannula 2.00 06/01/16 12:35 56 184/87 99 Nasal Cannula 2 06/01/16 06/01/16 06/02/16 15:00 23:00 07:00 Intake Total 888 ml 1209 ml Output Total 1950 ml 700 ml Balance -1062 ml 509 ml Physical Exam Head Head: Atraumatic (facial abrasion), Abrasions Eyes Eyes: Pupils Equal Neuro Mental Status: Awake (follows commands with the left hand) Pupils: Reactive Bilaterally Aston Coma Scale Best Eye Openin - To speech Best Verbal: 1 - None Best Motor: 6 - Obeys Total Glascow Coma Scale (GCS): 10 Sensation: Intact Respiratory Respiratory: CTA Gastrointestinal Gastrointestinal: Soft Bowel Sounds: Present Genitourinary Genitourinary: Stock Catheter In Place Musculoskeletal Extremities Upper Extremities Deltoid Bicep Tricep HI W. Ext Right Left Lower Extremeties Ilio Quad Plantar Dorsi EHL Right Left Musculoskeletal Remarks Right heiparesis especially in the right arm, flexes both lower extremities to stimulation Dermatologic Dermatologic: Skin Intact Extremities Edema: No Edema Objective Labs Laboratory Tests 06/01/16 12:35 06/02/16 04:51 06/02/16 04:57 Laboratory Tests Test 06/01/16 06/02/16 12:35 04:51 Bedside Sodium 141 MMOL/L Bedside Potassium 4.4 MMOL/L Bedside Chloride 101 MMOL/L Bedside Blood Urea Nitrogen 15 MG/DL Bedside Creatinine 1.3 MG/DL Bedside Glucose 145 MG/DL Total Creatine Kinase 145 U/L Troponin I LESS THAN 0.02 NG/ML Sodium Level 144 MEQ/L Potassium Level 3.8 MEQ/L Chloride Level 110 MEQ/L Carbon Dioxide Level 25.7 MEQ/L Anion Gap 8 MEQ/L Blood Urea Nitrogen 14 MG/DL Creatinine 1.34 MG/DL Estimat Glomerular Filtration 52 ML/MIN Rate Random Glucose 131 MG/DL Calcium Level 8.3 MG/DL Total Bilirubin 1.1 MG/DL Aspartate Amino Transf 19 U/L (AST/SGOT) Alanine Aminotransferase 16 U/L (ALT/SGPT) Alkaline Phosphatase 74 U/L Total Protein 6.0 GM/DL Albumin 3.4 GM/DL Laboratory Tests Test 06/01/16 13:30 Urine Opiates Screen NEG Urine Barbiturates Screen NEG Urine Amphetamines Screen NEG Urine Benzodiazepines Screen NEG Urine Cocaine Screen NEG Urine Cannabinoids Screen NEG Imaging Remarks Last Impressions Head CT 06/02/16 0000 Signed Impressions: Service Date/Time: Thursday, June 02, 2016 04:40 - CONCLUSION: 1. Increased size of the left parenchymal hemorrhage. 2. Increased amount of blood in both lateral ventricles. No ventriculomegaly. 3. Bilateral subarachnoid blood now evident. 4. 3 mm of rightward midline shift which is about the same. Bennett Terrell MD Cervical Spine CT 06/01/16 0000 Signed Impressions: Service Date/Time: Wednesday, June 01, 2016 12:37 - CONCLUSION: Degenerative changes as described above without fracture. Charlie Ramos MD FACR Assessment & Plan Diagnosis: (1) Intracranial hemorrhage Plan: Large basal ganglia bleed with left intraventricular extension now extending ot the left temporal lobe.Angiopathy and progressive loss of airway clearance is expected. Nasal trumpet was inserted at the bedside. His indicated that he has a living will and would not want to be in a dependent state. She is waiting for her daughter ad son to come from [place]. Supportive care until then is discussed with possible temporary intubation for airway protection. (2) HTN (hypertension) Plan: BP well controlled with cardene at this time. Maged Alonso Jun 02, 2016 11:28
--- NOTE | 2016-06-02 13:04 | EKG ---
Date Performed: 06/01/2016 Time Performed: 13:14:51 PTAGE: 80 years EKG: SINUS BRADYCARDIA BORDERLINE ECG NO PREVIOUS TRACING DOCTOR: Ramesh Snider Interpretating Date/Time 06/02/2016 12:59:24
[2016-06-02] MEDS: SODIUM CHLOR 0.9% 1000 ML INJ 1,000 ML IV SCH (15:11)
[2016-06-02 16:38] LABS: BICARBONATE 27.9 MEQ/L (21.0-32.0); POTASSIUM 3.7 MEQ/L (3.5-5.1)
--- NOTE | 2016-06-02 19:23 | RADRPT ---
EXAM DATE/TIME: 06/02/2016 18:43 [facility] COMPARISON: No previous studies available for comparison. INDICATIONS : NG tube placement. MEDICAL HISTORY : None. SURGICAL HISTORY : None. ENCOUNTER: Initial ACUITY: 1 day PAIN SCORE: Non-responsive. LOCATION: Bilateral Abdomen. FINDINGS: Examination of the abdomen demonstrates mild ileus. No free air. NG tube in distal esophagus. Minimal basilar airspace disease. CONCLUSION: Mild ileus. Nasogastric tube tip in distal esophagus. Nolan Elizabeth MD on June 02, 2016 at 19:20 Board Certified Radiologist. This report was verified electronically.
[2016-06-02] MEDS: JUVEN POWDER 1 PACK G-TUBE SCH (21:00)
[2016-06-02] MEDS: BENEPROTEIN POWDER 1 PACK G-TUBE SCH (23:01)
[2016-06-03] VITALS (13 sets, daily range): PULSE 60–91; O2SAT 100
[2016-06-03] MEDS: niCARdipine INJ 25 MG in SODIUM CHLOR 0.9% 250 ML INJ 250 ML IV SCH ×4 (00:54→09:32)
[2016-06-03 05:24] LABS: AUTOMATED NEUTROPHIL # 5.4 TH/MM3 (1.8-7.7); BASOPHIL % 0.3 % (0.0-2.0); EOSINOPHIL % 0.1 % (0.0-4.0); HEMATOCRIT 38.6 % (39.0-51.0); HEMO FLAGS DIFF FINAL; LYMPH % 9.1 % (9.0-44.0); LYMPHOCYTE # 0.6 TH/MM3 (1.0-4.8); MEAN CELL VOLUME 93.3 FL (80.0-100.0); MEAN CORPUSCULAR HEMOGLOBIN 31.3 PG (27.0-34.0); MEAN CORPUSCULAR HGB CONC 33.5 % (32.0-36.0); MONO % 12.7 % (0.0-8.0); NEUT % 77.8 % (16.0-70.0); PLATELET COUNT 142 TH/MM3 (150-450); RED BLOOD COUNT 4.13 MIL/MM3 (4.50-5.90); RED CELL DISTRIBUTION WIDTH 13.6 % (11.6-17.2)
[2016-06-03 05:51] LABS: ALT (GPT) 17 U/L (12-78); ANION GAP 10 MEQ/L (5-15); AST (GOT) 27 U/L (15-37); BICARBONATE 25.5 MEQ/L (21.0-32.0); BLOOD UREA NITROGEN 19 MG/DL (7-18); CHLORIDE 111 MEQ/L (98-107); GLOMERULAR FILTRATION RATE 51 ML/MIN (>89); MAGNESIUM 2.2 MG/DL (1.5-2.5); POTASSIUM 3.7 MEQ/L (3.5-5.1); SODIUM (NA) 146 MEQ/L (136-145)
[2016-06-03 05:54] LABS: ALKALINE PHOSPHATASE 65 U/L (45-117); TOTAL BILIRUBIN ADULT 1.2 MG/DL (0.2-1.0)
[2016-06-03] MEDS: SODIUM CHLOR 0.9% 1000 ML INJ 1,000 ML IV SCH ×2 (06:03→14:40)
[2016-06-03] MEDS: CHLORHEXIDINE GLUCONATE 2 % 1 PACK (2 CLOTHS) TOP SCH (06:03)
[2016-06-03] MEDS ORDERED: SODIUM CHLOR 0.9% 250 ML INJ 250 ML ONE (06:32)
--- NOTE | 2016-06-03 08:59 | HHI.CCPN ---
Subjective Remarks/Hospital Course 80-year-old male brought in by ambulance from home as a stroke alert. According to chart the patient has history of hypertension, no other medical problems. At around 11:50 AM the patient went to the restroom. The patient's heard a loud sound and was able to open the door only to find the patient lying on the ground. EMS arrived and noted that the patient had right-sided hemiparesis and is unable to speak. He is able to follow commands and move his left arm and leg. CT of the brain revealed a large basal ganglia bleed Objective Vital Signs Date Time Temp Pulse Resp B/P Pulse Ox O2 Delivery O2 Flow Rate FiO2 06/03/16 07:40 100 Simple Mask 8.00 06/03/16 06:00 88 06/02/16 19:00 98.8 26 144/67 Intake and Output 06/02/16 06/02/16 06/03/16 08:00 16:00 00:00 Intake Total 1209 ml 1252 ml 925 ml Output Total 700 ml 675 ml 675 ml Balance 509 ml 577 ml 250 ml Result Diagram: 06/03/16 0440 06/03/16 0441 Imaging Last [address] 06/01/16 0000 Signed Impressions: Service Date/Time: Wednesday, June 01, 2016 12:37 - CONCLUSION: Large left basal ganglia hematoma as described above with intraventricular rupture Francisco J Navarro MD Objective Remarks GENERAL: Well-nourished, well-developed patient. SKIN: Warm and dry. HEAD: Normocephalic. EYES: No scleral icterus. No injection or drainage. NECK: Supple, trachea midline. No JVD or lymphadenopathy. CARDIOVASCULAR: Regular rate and rhythm without murmurs, gallops, or rubs. RESPIRATORY: Breath sounds equal bilaterally. No accessory muscle use. GASTROINTESTINAL: Abdomen soft, non-tender, nondistended. MUSCULOSKELETAL: No cyanosis, or edema. BACK: Nontender without obvious deformity. No CVA tenderness. EXTREMITIES: Right-sided hemiplegia A/P Problem List: (1) Intracranial hemorrhage ICD Code: I62.9 Status: Acute (2) HTN (hypertension) ICD Code: I10 Status: Acute Assessment and Plan Intracranial bleed - Due to atherosclerosis and hypertension - No home anticoagulation medications - Coagulation profile within normal limits - Not candidate for neurosurgical intervention - Supportive care for now and a palliative care consult - Should patient's respiratory status gets worse, intubation and mechanical ventilation would be just prolonging the current condition and will not bring any benefit to patients quality of life Malignant hypertension - Cardene drip - SBP goal less than 130 - Hydralazine when necessary - Restart BEATA inhibitor - home meds - Start labetalol - Attempt to wean from Cardene drip DVT GI prophylaxis - Brandon's and SCDs Pepcid Level III Problem Qualifiers (1) HTN (hypertension): Qualified Code: I10 - Essential hypertension Giorgio Marcial MD Jun 03, 2016 08:59
[2016-06-03] MEDS: JUVEN POWDER 1 PACK G-TUBE SCH (09:00)
[2016-06-03] MEDS: BENEPROTEIN POWDER 1 PACK G-TUBE SCH ×2 (09:00→12:34)
[2016-06-03] MEDS ORDERED: LISINOPRIL 20 MG TAB PO SCH (09:00)
[2016-06-03] MEDS ORDERED: LABETALOL HCL 200 MG TAB PO SCH (09:00)
[2016-06-03] MEDS ORDERED: FINASTERIDE 5 MG TAB PO SCH (09:00)
[2016-06-03] MEDS: PANTOPRAZOLE SODIUM 40 MG VIAL IVP SCH (09:32)
[2016-06-03] MEDS: FAMOTIDINE 20 MG/2 ML VIAL IV PUSH SCH (09:32)
[2016-06-03] MEDS: SODIUM CHLORIDE 0.9% FLUSH 5 ML FLUSH IV FLUSH SCH (09:33)
[2016-06-03] MEDS: SODIUM CHLORIDE 23.4% INJ 188 MEQ in SODIUM CHLOR 0.9% 1000 ML INJ 1,000 ML IV SCH (10:00)
--- NOTE | 2016-06-03 11:13 | HHI.NSPN ---
Subjective History 80 yr old with a large left basal ganglia hemorrhage, spontaneous, with aphasia and right hemiparesis. The family is gathering. He has advanced directive towards palliative care. Repeat CT this am showed left temporal extension of the bleed with minimal mass effect. 06/03/16 Palliative care consult and neurology consult pending, clinically stable on low dose tube feeds and frequent suctioning. GCS 11 Vitals . Vital Signs Date Time Temp Pulse Resp B/P Pulse Ox O2 Delivery O2 Flow Rate FiO2 06/03/16 07:40 100 Simple Mask 8.00 06/03/16 06:00 88 06/03/16 04:00 88 06/03/16 02:00 81 06/03/16 00:00 82 06/02/16 22:00 79 06/02/16 20:55 97 Simple Mask 6.00 06/02/16 20:00 84 06/02/16 19:00 98.8 84 26 144/67 98 06/02/16 19:00 96 Nasal Cannula 6.00 06/02/16 18:00 74 22 144/66 06/02/16 18:00 68 06/02/16 17:00 76 22 140/63 06/02/16 16:20 99.6 66 22 140/65 06/02/16 16:00 75 06/02/16 15:00 76 22 140/67 06/02/16 14:00 62 21 128/59 06/02/16 14:00 63 06/02/16 13:00 63 22 138/63 06/02/16 12:00 62 06/02/16 12:00 99.6 62 20 133/61 96 06/02/16 06/02/16 06/03/16 15:00 23:00 07:00 Intake Total 1252 ml 925 ml 841 ml Output Total 675 ml 675 ml 500 ml Balance 577 ml 250 ml 341 ml Maximum Temperature: 99.8 Physical Exam Head Head: Atraumatic Eyes Eyes: Pupils Equal (2mm post surgical) Neuro Mental Status: Lethargic Pupils: Reactive Bilaterally Erickson Coma Scale Best Eye Openin - To speech Best Verbal: 1 - None Best Motor: 6 - Obeys Total Glascow Coma Scale (GCS): 10 Cardiac Cardiac: Regular Rate & Rhythm Respiratory Respiratory: CTA Gastrointestinal Gastrointestinal: Soft, Distended Bowel Sounds: Present Genitourinary Genitourinary: Stock Catheter In Place Musculoskeletal Extremities Upper Extremities Deltoid Bicep Tricep HI W. Ext Right Left Lower Extremeties Ilio Quad Plantar Dorsi EHL Right Left Musculoskeletal Remarks Right hemiparesis especially in the right arm, flexes both lower extremities to stimulation Dermatologic Dermatologic: Skin Intact Extremities Edema: SCDs Objective Labs Laboratory Tests 06/02/16 15:57 06/03/16 04:40 06/03/16 04:41 Laboratory Tests Test 06/02/16 06/03/16 15:57 04:41 Sodium Level 145 MEQ/L 146 MEQ/L Potassium Level 3.7 MEQ/L 3.7 MEQ/L Chloride Level 110 MEQ/L 111 MEQ/L Carbon Dioxide Level 27.9 MEQ/L 25.5 MEQ/L Anion Gap 7 MEQ/L 10 MEQ/L Blood Urea Nitrogen 14 MG/DL 19 MG/DL Creatinine 1.18 MG/DL 1.36 MG/DL Estimat Glomerular Filtration 60 ML/MIN 51 ML/MIN Rate Random Glucose 129 MG/DL 167 MG/DL Calcium Level 8.2 MG/DL 8.5 MG/DL Phosphorus Level 1.4 MG/DL Magnesium Level 2.2 MG/DL Total Bilirubin 1.2 MG/DL Aspartate Amino Transf 27 U/L (AST/SGOT) Alanine Aminotransferase 17 U/L (ALT/SGPT) Alkaline Phosphatase 65 U/L Total Protein 6.3 GM/DL Albumin 3.3 GM/DL Assessment & Plan Diagnosis: (1) Intracranial hemorrhage Plan: Large basal ganglia bleed with left intraventricular extension now extending of the left temporal lobe.Angiopathy and progressive loss of airway clearance is expected. Nasal trumpet was inserted at the bedside. His indicated that he has a living will and would not want to be in a dependent state. The son and daughter are present. Supportive care until then is discussed with possible temporary intubation for airway protection. (2) HTN (hypertension) Plan: BP well controlled at this time. Maged Alonso Jun 03, 2016 11:13
[2016-06-03 16:57] LABS: BICARBONATE 28.7 MEQ/L (21.0-32.0); POTASSIUM 3.9 MEQ/L (3.5-5.1)
[2016-06-03] MEDS: HYOSCYAMINE 0.5 MG/ML AMP IVP PRN (17:33)
[2016-06-03] MEDS: LORazepam 2 MG/ML VIAL IV PUSH PRN ×4 (17:33→21:10)
[2016-06-03] MEDS: MORPHINE SULFATE 8 MG/ML INJ IV PUSH PRN ×3 (17:49→18:51)
[2016-06-03] MEDS ORDERED: FAMOTIDINE 20 MG/2 ML VIAL IV PUSH SCH (21:00)
[2016-06-04] VITALS (10 sets, daily range): PULSE 61–69; RESP 15; O2SAT 98
[2016-06-04] MEDS: LORazepam 2 MG/ML VIAL IV PUSH PRN ×4 (00:18→14:24)
[2016-06-04] MEDS: HYOSCYAMINE 0.5 MG/ML AMP IVP PRN ×4 (01:15→14:22)
[2016-06-04] MEDS: MORPHINE SULFATE 8 MG/ML INJ IV PUSH PRN ×3 (03:37→14:22)
--- NOTE | 2016-06-04 10:39 | PD.CONS ---
Consult Service Palliative Care Consult Requested By Dr. Celeste MD. Primary Care Physician No Primary Care Physician Reason for Consultation a. To assist with evaluation and management of symptoms including: dyspnea. b. To assist medical decision maker(s) with: better understanding of current medical conditions; weighing benefits/burdens of medical treatment options; making medical treatment decisions. HPI History of Present Illness Mr. Pena is a 80 y/o male with a past medical history including hypertension and BPH. Patient presented to the ED on 06/01/16 via EMS with reports of right- sided hemiparesis and inability to speak. As per , patient was in the bathroom when she heard a loud sound. She was able to open the door and found patient lying on the floor. Upon arrival to the ED, patient was awake, aphasic but able to follow commands and move his left arm and leg. Head CT showed large left basal ganglia hematoma with intraventricular rupture likely secondary to uncontrolled hypertension. Cervical spine CT showed degenerative changes with no acute process. Neurosurgery -Dr. Alonso was consulted. He was found to be not a surgical candidate. Patient clinical status continued to worsen, he was found lethargic and nonverbal. Patient was transferred to ICU for further management. Repeat head CT on 06/02/16 showed increased size of left parenchymal hemorrhage and increase amount of blood in both lateral ventricles. On 06/03/16 at around 1500, patient respiratory condition continued to worsen secondary to hypoxia and inability to control his own secretions. Unix Analyst -Dr. Cifuentes had a long discussion with family to review current medical management and poor prognosis for a meaningful neurological recovery or improved quality of life. Family decided to pursue comfort measures given poor prognosis and known wishes. Patient was made DNR DNI and comfort medications were ordered. Palliative care has been consulted for assistance and symptom management, clarifications of goals of care and emotional support. Met with patient's Brittney, daughter Geneva and son Matthew. Reviewed patient 's prior health status, events leading to this hospitalization, poor prognosis and current symptom management/comfort-directed care. Introduced hospice philosophy and benefits. Questions were answered in great detail. Family electing to transfer patient to hospice care center for symptom management of dyspnea and EOL care. Family electing [facility], referral made. . Function/Cognitive Trajectory Independently living prior to this hospitalization. No assistance with ADLs. No functional or cognitive decline reported. . Review of Systems ROS Limitations: Clinical Condition, Intubated, Unresponsive Constitutional: DENIES: Fatigue, Change in appetite Endocrine: DENIES: Heat/cold intolerance Eyes: DENIES: Blurred vision Ears, nose, mouth, throat: DENIES: Hearing loss Respiratory: COMPLAINS OF: Apneas, Shortness of breath Cardiovascular: COMPLAINS OF: Dyspnea on Exertion, DENIES: Chest pain, Lower Extremity Edema Gastrointestinal: DENIES: Abdominal pain, Diarrhea, Nausea, Vomiting Musculoskeletal: DENIES: Decreased range of motion Hematologic/Lymphatics: DENIES: Bruising Immunologic/Allergic: DENIES: Eczema Neurologic: DENIES: Abnormal gait Psychiatric: DENIES: Anxiety, Depression Other ROS: Limited ROS secondary to clinical condition, patient intubated on mechanical ventilation. ROS obtained from medical history, patient's family and clinical observation. Past Family Social History Coded Allergies: No Known Allergies (Unverified , 06/01/16) Past Medical History Hypertension Benign prostate hyperplasia . Past Surgical History None. . Reported Medications Quinapril (Quinapril HCl) 20 Mg Tab 20 Mg PO DAILY Finasteride 5 Mg Tab 5 Mg PO DAILY . Current Medications Medications (Trade) Dose Ordered Sig/Evan Route Start Time Stop Time Status Last Admin (Zofran Inj) 4 mg Q6H PRN IV 06/01/16 14:15 (Ativan Inj) 4 mg Q15M PRN IV PUSH 06/03/16 17:15 06/04/16 09:30 (Morphine Inj) 10 mg Q10M PRN IV PUSH 06/03/16 17:15 06/04/16 09:30 (Levsin Inj) 0.5 mg Q4H PRN IVP 06/03/16 17:15 06/04/16 09:28 Family History Brother and sister with history of CVA. Both parents of old age. . Substance Use Tobacco: Former smoker. Quit a few years ago. Alcohol: None. Prescription med abuse: None. Illicits: None. . Psychosocial History Patient to Brittney Pena for the past 59 years. They have 2 children, Geneva and Matthew who reside in [place]. Patient is retired, former engineer design and construction. . Spiritual/Cultural Factors No holiness affiliation. . Living Will: Completed, but not made available Durable Power of [employer] Superintendent: Completed, but not made available Health Care Surrogate(s): Healthcare proxy, Brittney Pena. . Documented care wishes: His indicated that he has a living will and would not want to be in a dependent state. Pending copy of living well from family. . Family/friends goals: NO CODE. Comfort-directed care in the setting of patient's poor prognosis for meaningful neurological recovery or improved quality of life. . Ethical and Legal Issues Living will completed. No ethical or legal issues have been identified. . Physical Exam Vital Signs Date Time Temp Pulse Resp B/P Pulse Ox O2 Delivery O2 Flow Rate FiO2 06/04/16 08:00 64 06/04/16 07:54 98 Simple Mask 8.00 06/04/16 07:00 98 Simple Mask 6.00 06/04/16 06:00 69 06/04/16 04:00 69 06/04/16 03:43 15 06/04/16 02:00 68 06/04/16 00:00 64 06/03/16 22:00 60 06/03/16 20:00 60 06/03/16 19:00 96 Simple Mask 8.00 06/03/16 18:00 86 06/03/16 16:00 68 06/03/16 14:00 62 06/03/16 13:00 92 Simple Mask 8.00 06/03/16 12:00 64 06/03/16 06/04/16 19:00 07:00 Intake Total 1349 ml 205 ml Output Total 500 ml 550 ml Balance 849 ml -345 ml IV Total 778 ml 0 ml Tube Feeding 391 ml 205 ml Other 180 ml 0 ml Output Urine Total 500 ml 550 ml # Bowel Movements 0 0 Exam CONSTITUTIONAL/GENERAL: This is an adequately nourished patient in moderate distress secondary to tachypnea. TUBES/LINES/DRAINS: PIV's, SCDs, Stock catheter, NG and oxygen mask. SKIN: No jaundice, rashes, or lesions. Ecchymoses on upper extremities. No wounds seen anteriorly. Skin temperature appropriate. Diaphoretic. HEAD: Atraumatic. Normocephalic. EYES: Pupils equal and round and reactive. No scleral icterus. No injection or drainage. ENT: Unable to assess his hearing secondary to clinical condition. Nose without bleeding or purulent drainage. Mouth close. NECK: Trachea midline. Supple. CARDIOVASCULAR: Regular rate and rhythm without murmurs, gallops, or rubs. Peripheral pulses symmetric. RESPIRATORY/CHEST: Tachypnea, increased work of breathing using accessory muscles. Coarse breath sounds bilateral. GASTROINTESTINAL: Abdomen soft, mildly distended. Bowel sounds present. GENITOURINARY: Without palpable bladder distension. Stock catheter in place. MUSCULOSKELETAL: Extremities without clubbing, cyanosis, or edema. NEUROLOGICAL: Unresponsive to tactile or verbal stimuli. Comatose. PSYCHIATRIC: Unable to assess secondary to clinical condition. . Diagnostic Tests Laboratory Laboratory Tests Test 06/01/16 06/01/16 06/01/16 06/02/16 12:35 13:30 21:21 04:51 White Blood Count 6.5 TH/MM3 (4.0-11.0) Red Blood Count 4.41 MIL/MM3 (4.50-5.90) Hemoglobin 13.9 GM/DL (13.0-17.0) Bedside Hemoglobin 13.9 G/DL (12.0-17.0) Hematocrit 41.3 % (39.0-51.0) Bedside Hematocrit 41.0 % (38.0-51.0) Mean Corpuscular Volume 93.6 FL (80.0-100.0) Mean Corpuscular Hemoglobin 31.5 PG (27.0-34.0) Mean Corpuscular Hemoglobin 33.7 % Concent (32.0-36.0) Red Cell Distribution Width 13.7 % (11.6-17.2) Platelet Count 151 TH/MM3 (150-450) Mean Platelet Volume 8.4 FL (7.0-11.0) Neutrophils (%) (Auto) 75.4 % (16.0-70.0) Lymphocytes (%) (Auto) 16.4 % (9.0-44.0) Monocytes (%) (Auto) 5.8 % (0.0-8.0) Eosinophils (%) (Auto) 2.0 % (0.0-4.0) Basophils (%) (Auto) 0.4 % (0.0-2.0) Neutrophils # (Auto) 4.9 TH/MM3 (1.8-7.7) Lymphocytes # (Auto) 1.1 TH/MM3 (1.0-4.8) Monocytes # (Auto) 0.4 TH/MM3 (0-0.9) Eosinophils # (Auto) 0.1 TH/MM3 (0-0.4) Basophils # (Auto) 0.0 TH/MM3 (0-0.2) CBC Comment DIFF FINAL Differential Comment Prothrombin Time 10.9 SEC (9.8-11.6) Prothromb Time International 1.0 RATIO Ratio Activated Partial 27.2 SEC Thromboplast Time (24.3-30.1) Fibrinogen 259 mg/dL (227-377) Bedside Sodium 141 MMOL/L (138-146) Bedside Potassium 4.4 MMOL/L (3.5-4.9) Bedside Chloride 101 MMOL/L (98-109) Bedside Blood Urea Nitrogen 15 MG/DL (8-26) Bedside Creatinine 1.3 MG/DL (0.8-1.3) Bedside Glucose 145 MG/DL (60-95) Total Creatine Kinase 145 U/L (39-308) Troponin I LESS THAN 0.02 NG/ML (0.02-0.05) Blood Type A POSITIVE Antibody Screen NEGATIVE Blood Bank Comment Urine Color LIGHT-YELLOW (YELLW/STRAW) Urine Turbidity CLEAR (CLEAR) Urine pH 7.0 (5.0-8.5) Urine Specific [place] 1.010 (1.002-1.035) Urine Protein 30 mg/dL (NEG-TRACE) Urine Glucose (UA) NEG mg/dL (NEG) Urine Ketones NEG mg/dL (NEG) Urine Occult Blood NEG (NEG) Urine Nitrite NEG (NEG) Urine Bilirubin NEG (NEG) Urine Urobilinogen LESS THAN 2.0 MG/DL (LESS THAN 2.0) Urine Leukocyte Esterase NEG (NEG) Urine RBC 4 /hpf (0-3) Urine WBC LESS THAN 1 /hpf (0-5) Microscopic Urinalysis Comment Urine Opiates Screen NEG (NEG) Urine Barbiturates Screen NEG (NEG) Urine Amphetamines Screen NEG (NEG) Urine Benzodiazepines Screen NEG (NEG) Urine Cocaine Screen NEG (NEG) Urine Cannabinoids Screen NEG (NEG) Nasal Screen MRSA (PCR) NEGATIVE (NEGATIVE) Sodium Level 144 MEQ/L (136-145) Potassium Level 3.8 MEQ/L (3.5-5.1) Chloride Level 110 MEQ/L (98-107) Carbon Dioxide Level 25.7 MEQ/L (21.0-32.0) Anion Gap 8 MEQ/L (5-15) Blood Urea Nitrogen 14 MG/DL (7-18) Creatinine 1.34 MG/DL (0.60-1.30) Estimat Glomerular Filtration 52 ML/MIN (>89) Rate Random Glucose 131 MG/DL (74-106) Calcium Level 8.3 MG/DL (8.5-10.1) Total Bilirubin 1.1 MG/DL (0.2-1.0) Aspartate Amino Transf 19 U/L (15-37) (AST/SGOT) Alanine Aminotransferase 16 U/L (12-78) (ALT/SGPT) Alkaline Phosphatase 74 U/L (45-117) Total Protein 6.0 GM/DL (6.4-8.2) Albumin 3.4 GM/DL (3.4-5.0) Test 06/02/16 06/02/16 06/03/16 06/03/16 04:57 15:57 04:40 04:41 White Blood Count 7.8 TH/MM3 7.0 TH/MM3 (4.0-11.0) (4.0-11.0) Red Blood Count 4.18 MIL/MM3 4.13 MIL/MM3 (4.50-5.90) (4.50-5.90) Hemoglobin 13.4 GM/DL 12.9 GM/DL (13.0-17.0) (13.0-17.0) Hematocrit 38.8 % 38.6 % (39.0-51.0) (39.0-51.0) Mean Corpuscular Volume 92.8 FL 93.3 FL (80.0-100.0) (80.0-100.0) Mean Corpuscular Hemoglobin 32.1 PG 31.3 PG (27.0-34.0) (27.0-34.0) Mean Corpuscular Hemoglobin 34.5 % 33.5 % Concent (32.0-36.0) (32.0-36.0) Red Cell Distribution Width 13.6 % 13.6 % (11.6-17.2) (11.6-17.2) Platelet Count 153 TH/MM3 142 TH/MM3 (150-450) (150-450) Mean Platelet Volume 8.6 FL 8.7 FL (7.0-11.0) (7.0-11.0) Neutrophils (%) (Auto) 82.1 % 77.8 % (16.0-70.0) (16.0-70.0) Lymphocytes (%) (Auto) 9.4 % 9.1 % (9.0-44.0) (9.0-44.0) Monocytes (%) (Auto) 8.3 % (0.0-8.0) 12.7 % (0.0-8.0) Eosinophils (%) (Auto) 0.1 % (0.0-4.0) 0.1 % (0.0-4.0) Basophils (%) (Auto) 0.1 % (0.0-2.0) 0.3 % (0.0-2.0) Neutrophils # (Auto) 6.4 TH/MM3 5.4 TH/MM3 (1.8-7.7) (1.8-7.7) Lymphocytes # (Auto) 0.7 TH/MM3 0.6 TH/MM3 (1.0-4.8) (1.0-4.8) Monocytes # (Auto) 0.6 TH/MM3 0.9 TH/MM3 (0-0.9) (0-0.9) Eosinophils # (Auto) 0.0 TH/MM3 0.0 TH/MM3 (0-0.4) (0-0.4) Basophils # (Auto) 0.0 TH/MM3 0.0 TH/MM3 (0-0.2) (0-0.2) CBC Comment DIFF FINAL DIFF FINAL Differential Comment Prothrombin Time 11.2 SEC (9.8-11.6) Prothromb Time International 1.0 RATIO Ratio Fibrinogen 250 mg/dL (227-377) Sodium Level 145 MEQ/L 146 MEQ/L (136-145) (136-145) Potassium Level 3.7 MEQ/L 3.7 MEQ/L (3.5-5.1) (3.5-5.1) Chloride Level 110 MEQ/L 111 MEQ/L (98-107) (98-107) Carbon Dioxide Level 27.9 MEQ/L 25.5 MEQ/L (21.0-32.0) (21.0-32.0) Anion Gap 7 MEQ/L (5-15) 10 MEQ/L (5-15) Blood Urea Nitrogen 14 MG/DL (7-18) 19 MG/DL (7-18) Creatinine 1.18 MG/DL 1.36 MG/DL (0.60-1.30) (0.60-1.30) Estimat Glomerular Filtration 60 ML/MIN (>89) 51 ML/MIN (>89) Rate Random Glucose 129 MG/DL 167 MG/DL (74-106) (74-106) Calcium Level 8.2 MG/DL 8.5 MG/DL (8.5-10.1) (8.5-10.1) Phosphorus Level 1.4 MG/DL (2.5-4.9) Magnesium Level 2.2 MG/DL (1.5-2.5) Total Bilirubin 1.2 MG/DL (0.2-1.0) Aspartate Amino Transf 27 U/L (15-37) (AST/SGOT) Alanine Aminotransferase 17 U/L (12-78) (ALT/SGPT) Alkaline Phosphatase 65 U/L (45-117) Total Protein 6.3 GM/DL (6.4-8.2) Albumin 3.3 GM/DL (3.4-5.0) Test 06/03/16 15:00 Sodium Level 147 MEQ/L (136-145) Potassium Level 3.9 MEQ/L (3.5-5.1) Chloride Level 112 MEQ/L (98-107) Carbon Dioxide Level 28.7 MEQ/L (21.0-32.0) Anion Gap 6 MEQ/L (5-15) Blood Urea Nitrogen 25 MG/DL (7-18) Creatinine 1.22 MG/DL (0.60-1.30) Estimat Glomerular Filtration 57 ML/MIN (>89) Rate Random Glucose 154 MG/DL (74-106) Calcium Level 8.6 MG/DL (8.5-10.1) Result Diagram: 06/03/16 0440 06/03/16 1500 Microbiology Microbiology Date/Time Procedure Status Source Growth 06/03/16 10:40 Gram Stain - Final Resulted Sputum Oral Tracheal Aspirate 06/03/16 10:40 Sputum Culture Resulted Sputum Oral Tracheal Aspirate Pending Imaging Last Impressions Head CT 06/02/16 0000 Signed Impressions: Service Date/Time: Thursday, June 02, 2016 04:40 - CONCLUSION: 1. Increased size of the left parenchymal hemorrhage. 2. Increased amount of blood in both lateral ventricles. No ventriculomegaly. 3. Bilateral subarachnoid blood now evident. 4. 3 mm of rightward midline shift which is about the same. Bennett Terrell MD Abdomen X-Ray 06/02/16 0000 Signed Impressions: Service Date/Time: Thursday, June 02, 2016 18:43 - CONCLUSION: Mild ileus. Nasogastric tube tip in distal esophagus. Nolan Elizabeth MD Cervical Spine CT 06/01/16 0000 Signed Impressions: Service Date/Time: Wednesday, June 01, 2016 12:37 - CONCLUSION: Degenerative changes as described above without fracture. Charlie Ramos MD FACR Patient/Family Conference Present at Family Conference: Brittney, daughter Geneva and son Matthew. Family Conference Time (mins): 43 Family Conference Location: Bedside Issues Discussed: * Palliative care role, purpose, approach * Additional medical, psychosocial, and spiritual history * Patients general health, functional status, and cognitive changes in the months leading up to the current hospitalization * Family's understanding of the current medical problems * Family's understanding of prognosis * Patients goals of care as best understood from advance directives and/or conversations and/or values * Current medical treatment options and benefits/burdens of those options * Likely scenarios comparing ongoing aggressive care with a transition to comfort measures only * Questions answered to the best of my ability * Palliative care contact information provided * Hospice philosophy and benefits . Assessment and Plan Disease Oriented Problem List: (1) Intracranial hemorrhage (2) HTN (hypertension) Symptom Scale: (1) Dyspnea (2) Anxiety 0-10 Scale: Unable to quantify Pertinent Non-Medical Issues Psychosocial: . Has 2 children. Retired. Spiritual: No holiness affiliations. Legal: Living will has been completed. Ethical issues impacting care: No ethical issues have been identified. . Important Contacts Brittney Pena [phone] and [phone]. Daughter Geneva . . Prognosis Mr. Pena is a 80 y/o male with a past medical history including hypertension and BPH. Patient presented to the ED on 06/01/16 via EMS with reports of right- sided hemiparesis and inability to speak. Head CT showed large left basal ganglia hematoma with intraventricular rupture likely secondary to uncontrolled hypertension. Repeat head CT on 06/02/16 showed increased size of left parenchymal hemorrhage and increase amount of blood in both lateral ventricles. Bleed could attend 30 mL in volume. ICH score 3 with hospital mortality rate between 73 and 97%. Given his poor prognosis for meaningful neurological recovery or improvement quality of life, family has elected to transition patient to comfort directed care. Patient life expectancy of hours to days if illness run its natural course. Patient hospice appropriate. . Code Status: No Code Plan * CODE STATUS: NO CODE. DNR/DNI. * Healthcare decision-maker: Patient lacks decision-making capacity secondary to clinical condition. As per [place] statute, Healthcare proxy is Brittney Pena. * GOALS OF CARE: NO CODE. Comfort-directed care in the setting of patient's poor prognosis for meaningful neurological recovery or improved quality of life. Family electing to transfer patient to hospice care center for symptom management of dyspnea and end of life care. * Family electing [facility]. Referral made. * SYMPTOMS: == Dyspnea and anxiety: respiratory condition continued to worsen secondary to hypoxia and inability to control his own secretions due to large basal ganglia bleed with left intraventricular extension. Morphine 10 mg every 10 minutes available as needed and Ativan 4 mg every 15 minutes available as needed. Has been given 3 doses with good effect. ==Respiratory congestion: Adding Lasix q6h PRN. Levsin available as needed. * Case discussed with bedside RN. * Spiritual services offered and declined. * Anticipatory guidance provided to family related to symptom management at EOL. * Palliative care contact information has been provided to family. . Time Spent Total Floor Time (mins): 82 (Total care to include review and summarization of available medical records, physical exam, bedside conversation with patient's family and case discussion with bedside RN. ) >50% Counseling/Coord of Care: Yes Thank you for the opportunity to participate in the care of Mr. Pena. Attestation To help prompt me to consider important information that might be impacting today's encounter and assessment, information from prior notes written by myself or my colleagues may have been "brought forward" into today's note. My signature on this note, however, is an attestation that I personally performed the exam, history, and/or decision-making noted today, and, unless otherwise indicated, the interactions with patient, family, and staff as well as the review of records all occurred today. I also attest that the listed assessment and stated plan reflect my best clinical judgment today based on the combination of historical information, prior notes, and today's exam/ interactions. When time spent is documented, it refers only to time spent today by the signer, or if indicated, combined time spent today by collaborating physician/nurse practitioner. Gabriela Joel Jun 04, 2016 10:39
[2016-06-04] MEDS ORDERED: FUROSEMIDE 20 MG/2 ML VIAL IV PRN (11:45)
[2016-06-04] MEDS ORDERED: ACETAMINOPHEN 650 MG SUPP PR PRN (11:45)
--- NOTE | 2016-06-04 13:03 | HHI.CCPN ---
Subjective Remarks/Hospital Course 80-year-old male brought in by ambulance from home as a stroke alert. According to chart the patient has history of hypertension, no other medical problems. At around 11:50 AM the patient went to the restroom. The patient's heard a loud sound and was able to open the door only to find the patient lying on the ground. EMS arrived and noted that the patient had right-sided hemiparesis and is unable to speak. He is able to follow commands and move his left arm and leg. CT of the brain revealed a large basal ganglia bleed SUBJ: Hospice consulted. Patient somnolent not in acute distress. Son at bedside updated Objective Vital Signs Date Time Temp Pulse Resp B/P Pulse Ox O2 Delivery O2 Flow Rate FiO2 06/04/16 12:00 61 06/04/16 07:54 98 Simple Mask 8.00 06/04/16 03:43 15 06/02/16 19:00 98.8 144/67 Intake and Output 06/03/16 06/03/16 06/04/16 08:00 16:00 00:00 Intake Total 841 ml 1349 ml 205 ml Output Total 500 ml 500 ml 425 ml Balance 341 ml 849 ml -220 ml Result Diagram: 06/03/16 0440 06/03/16 1500 Imaging Last [address] 06/01/16 0000 Signed Impressions: Service Date/Time: Wednesday, June 01, 2016 12:37 - CONCLUSION: Large left basal ganglia hematoma as described above with intraventricular rupture Francisco J Navarro MD Objective Remarks GENERAL: Well-nourished, well-developed patient. On FM SKIN: Warm and dry. HEAD: Normocephalic. EYES: No scleral icterus. No injection or drainage. NECK: Supple, trachea midline. No JVD or lymphadenopathy. CARDIOVASCULAR: Regular rate and rhythm without murmurs, gallops, or rubs. RESPIRATORY: Breath sounds equal bilaterally. No accessory muscle use. Some gurgling breath sounds GASTROINTESTINAL: Abdomen soft, non-tender, nondistended. MUSCULOSKELETAL: No cyanosis, or edema. BACK: Nontender without obvious deformity. No CVA tenderness. EXTREMITIES: Right-sided hemiplegia A/P Problem List: (1) Intracranial hemorrhage ICD Code: I62.9 Status: Acute (2) HTN (hypertension) ICD Code: I10 Status: Acute Assessment and Plan Intracranial bleed - Due to atherosclerosis and hypertension - No home anticoagulation medications - Not candidate for neurosurgical intervention - Palliative care consulted, transitioned this hospice - Should patient's respiratory status gets worse, intubation and mechanical ventilation would be just prolonging the current condition and will not bring any benefit to patients quality of life Malignant hypertension - Cardene drip SBP goal less than 130. Discontinue after hospice consult - Hydralazine when necessary. Restarted BEATA inhibitor - home meds - Started labetalol DVT GI prophylaxis - Brandon's and SCDs Pepcid Level 2 Dispo: Await hospice consult and DC to hospice Problem Qualifiers (1) HTN (hypertension): Qualified Code: I10 - Essential hypertension German Guajardo MD Jun 04, 2016 13:03
--- NOTE | 2016-06-04 13:06 | HHI.DS ---
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 According to chart the patient has history of hypertension, no other medical problems. At around 11:50 AM the patient went to the restroom. The patient's heard a loud sound and was able to open the door only to find the patient lying on the ground. EMS arrived and noted that the patient had right-sided hemiparesis and is unable to speak. He is able to follow commands and move his left arm and leg. 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 Patient somnolent not in acute distress. Son at bedside updated CBC/BMP: 06/03/16 0440 06/03/16 1500 Significant Findings Laboratory Tests Test 06/01/16 06/02/16 06/02/16 06/02/16 13:30 04:51 04:57 15:57 Urine Protein 30 mg/dL (NEG-TRACE) Urine RBC 4 /hpf (0-3) Chloride Level 110 MEQ/L 110 MEQ/L (98-107) (98-107) Creatinine 1.34 MG/DL (0.60-1.30) Estimat Glomerular Filtration 52 ML/MIN (>89) 60 ML/MIN (>89) Rate Random Glucose 131 MG/DL 129 MG/DL (74-106) (74-106) Calcium Level 8.3 MG/DL 8.2 MG/DL (8.5-10.1) (8.5-10.1) Total Bilirubin 1.1 MG/DL (0.2-1.0) Total Protein 6.0 GM/DL (6.4-8.2) Red Blood Count 4.18 MIL/MM3 (4.50-5.90) Hematocrit 38.8 % (39.0-51.0) Neutrophils (%) (Auto) 82.1 % (16.0-70.0) Monocytes (%) (Auto) 8.3 % (0.0-8.0) Lymphocytes # (Auto) 0.7 TH/MM3 (1.0-4.8) Test 06/03/16 06/03/16 06/03/16 04:40 04:41 15:00 Red Blood Count 4.13 MIL/MM3 (4.50-5.90) Hemoglobin 12.9 GM/DL (13.0-17.0) Hematocrit 38.6 % (39.0-51.0) Platelet Count 142 TH/MM3 (150-450) Neutrophils (%) (Auto) 77.8 % (16.0-70.0) Monocytes (%) (Auto) 12.7 % (0.0-8.0) Lymphocytes # (Auto) 0.6 TH/MM3 (1.0-4.8) Sodium Level 146 MEQ/L 147 MEQ/L (136-145) (136-145) Chloride Level 111 MEQ/L 112 MEQ/L (98-107) (98-107) Blood Urea Nitrogen 19 MG/DL (7-18) 25 MG/DL (7-18) Creatinine 1.36 MG/DL (0.60-1.30) Estimat Glomerular Filtration 51 ML/MIN (>89) 57 ML/MIN (>89) Rate Random Glucose 167 MG/DL 154 MG/DL (74-106) (74-106) Phosphorus Level 1.4 MG/DL (2.5-4.9) Total Bilirubin 1.2 MG/DL (0.2-1.0) Total Protein 6.3 GM/DL (6.4-8.2) Albumin 3.3 GM/DL (3.4-5.0) PE at Discharge GENERAL: Well-nourished, well-developed patient. On FM SKIN: Warm and dry. HEAD: Normocephalic. EYES: No scleral icterus. No injection or drainage. NECK: Supple, trachea midline. No JVD or lymphadenopathy. CARDIOVASCULAR: Regular rate and rhythm without murmurs, gallops, or rubs. RESPIRATORY: Breath sounds equal bilaterally. No accessory muscle use. Some gurgling breath sounds GASTROINTESTINAL: Abdomen soft, non-tender, nondistended. MUSCULOSKELETAL: No cyanosis, or edema. BACK: Nontender without obvious deformity. No CVA tenderness. EXTREMITIES: Right-sided hemiplegia Hospital Course 80-year-old male brought in by ambulance from home as a stroke alert. According to chart the patient has history of hypertension, no other medical problems. At around 11:50 AM the patient went to the restroom. The patient's heard a loud sound and was able to open the door only to find the patient lying on the ground. EMS arrived and noted that the patient had right-sided hemiparesis and is unable to speak. He is able to follow commands and move his left arm and leg. 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 This was deemed inoperable by neurosurgery. Patient had a living will and did not want to be on life support. Hospice consulted. Will discharge to hospice with comfort measures Pt Condition on Discharge: Deteriorating Discharge Disposition: Hospice/Med Facility Discharge Instructions DIET: Follow Instructions for: Nothing By Mouth Activities you can perform: Continue Bedrest German Guajardo MD Jun 04, 2016 13:06
== END 2016-06-04 16:03 | disposition hospice, inpatient (51) | DRG 64 ==
LOC: NEPE 12:29 → NEDA 13:16 → N03B 18:27
PROVIDERS: ADMIT Internal Medicine Critical Care Medicine; ATTEND Internal Medicine Critical Care Medicine
DX: I61.0 Nontraumatic intracerebral hemorrhage in hemisphere, subcortical (principal); G93.40 Encephalopathy, unspecified; J96.91 Respiratory failure, unspecified with hypoxia; G81.91 Hemiplegia, unspecified affecting right dominant side; R47.01 Aphasia; I10 Essential (primary) hypertension; S40.211A Abrasion of right shoulder, initial encounter; N40.0 Benign prostatic hyperplasia without lower urinary tract symptoms; F41.9 Anxiety disorder, unspecified; Z51.5 Encounter for palliative care; Z66 Do not resuscitate; Z87.891 Personal history of nicotine dependence
CPT/HCPCS: 70450; 72125; 74000; 80048; 80053; 80307; 81001; 82435; 82550; 82565; 82947; 83735; 84100; 84132; 84295; 84484; 84520; 85025; 85384; 85610; 85730; 86850; 86900; 86901; 87070; 87205; 87641; 93005; 94664; 96374; C9113; J0171; J0360; J0461; J1940; J1980; J2060; J2150; J2270; J7030; J7050